=== PATIENT | female | born 2000 | race Caucasian/White ===

== ENCOUNTER → 2019-06-16 | Outpatient (CLI) | payer OTHER ==
[2019-06-16 10:54] LABS: PLATELET COUNT 275 x10^3mcL (130-400)
[2019-06-16 11:48] LABS: RED CELL DISTRIBUTION WIDTH 25.2 % (11.5-14.5)
[2019-06-16 12:23] LABS: BAND NEUTROPHIL 0 % (0-10); BASOPHIL 0 % (0-2); MONOCYTE 5 % (0-7); PLATELET MORPHOLOGY PLATELETS INCREASED; SEGMENTED NEUTROPHILS 72 % (37-75); ovalocyte/elliptocyte 2+; rbc morphology (normal/abnorm) ABNORMAL (NORMAL)
[2019-06-17 05:09] LABS: RAPID PLASMA REAGIN Non Reactive (Non Reactive)
== END | disposition home or self-care (01) ==
LOC: LB 09:54
DX: Z34.90 Encounter for supervision of normal pregnancy, unspecified, unspecified trimester (principal); N30.00 Acute cystitis without hematuria; Z11.3 Encounter for screening for infections with a predominantly sexual mode of transmission; Z31.430 Encounter of female for testing for genetic disease carrier status for procreative management

== ENCOUNTER → 2019-07-27 | Outpatient (CLI) | payer OTHER, MEDICAID ==
[2019-07-27 10:58] LABS: PLATELET COUNT 228 x10^3mcL (130-400)
[2019-07-27 11:02] LABS: BASOPHIL % 0 % (0-2); RED CELL DISTRIBUTION WIDTH 30.5 % (11.5-14.5)
[2019-07-27 11:36] LABS: ovalocyte/elliptocyte 1+; rbc morphology (normal/abnorm) ABNORMAL (NORMAL)
== END | disposition home or self-care (01) ==
LOC: LB 10:22
DX: Z34.92 Encounter for supervision of normal pregnancy, unspecified, second trimester (principal); D64.9 Anemia, unspecified